=== PATIENT | male | born 1975 | race African-American/Black ===

== ENCOUNTER 2017-02-22 11:29 | Inpatient (IN) | payer OTHER ==
[~2017-02-22] VITALS: Ht 193 cm; Wt 119.7 kg
[2017-02-22 12:28] LABS: ABSOLUTE BASOPHIL COUNT 0.1 /CUMM (0.0-0.2); ABSOLUTE EOSINOPHIL COUNT 0.1 /CUMM (0.0-0.7); ABSOLUTE GRANULOCYTE CT 12.4 /CUMM (1.4-6.5); ABSOLUTE LYMPH COUNT 2.4 /CUMM (1.2-3.4); ABSOLUTE MONOCYTE COUNT 1.1 /CUMM (0.10-0.60); BASOPHIL % 0.7 % (0.0-2.0); EOSINOPHIL % 0.5 % (0-5); GRANULOCYTE % 76.9 % (42.2-75.2); HEMATOCRIT 38.8 % (42-52); MEAN CORPUSCULAR HGB 27.1 PG (27.0-31.0); MEAN CORPUSCULAR VOLUME 82.2 FL (80.0-94.0); MEAN PLATELET VOLUME 8.4 FL (7.4-10.4); PLATELET COUNT 327 /CUMM (130-400); RBC DISTRIBUTION WIDTH 14.7 % (11.5-14.5); RED BLOOD CELL CT 4.73 /CUMM (4.70-6.10); WHITE BLOOD CELL COUNT 16.1 /CUMM (4.8-10.8)
--- NOTE | 2017-02-22 12:59 | ED GI/GU/ABDOMINAL COMPLAINT ---
History of Present Illness General Chief Complaint: Abdominal Pain/Flank Pain Stated Complaint: SIB URGENT CARE FOR ABD PAIN Source: patient Exam Limitations: no limitations Vital Signs & Intake/Output Vital Signs & Intake/Output Vital Signs Date Time Temp Pulse Resp B/P B/P Pulse O2 O2 Flow FiO2 Mean Ox Delivery Rate 02/22 1341 99 Room Air 02/22 1202 98.0 82 18 130/79 99 Room Air Room Air Allergies Coded Allergies: No Known Allergies (02/22/17) Reconcile Medications Amoxicillin/Potassium Clav (Augmentin 875-125 Tablet) 875 MG-125 MG TABLET 1 TAB PO BID INFECTION Tramadol HCl (Ultram) 50 MG TABLET 1 TAB PO Q6P PRN pain Triage Note: PT TO ED WITH C/O LOWER LEFT ABD PAIN X 1 WEEK, TOOK PEPTOBISMAL, THEN HAD DIARRHEA, THEN TOOK IMMODIUM, TRIED GAS-X, PAIN CONTINUES. TAKING PO FLUIDS WELL, "PAIN STILL COMES AND GOES". Triage Nurses Notes Reviewed? yes Onset: Abrupt Duration: week(s): Timing: recent history Quality/Severity: cramping Location: left lower quadrant Radiation: no radiation Activities at Onset: physical activity Prior Abdominal Problems: none HPI: 41-year-old gentlem with no past medical history/past surgical history came to [facility] with complaints of left lower quadrant pain for the past 1 week. Apparently patient was in usual state of health until a week ago, followed by cramping left lower quadrant pain of 8 x 10 in severity aggravated on increased physical activity and no relieving factors. The pain was not associated with chills, fever, hematochezia, hematuria, epigastric pain, right lower quadrant pain, trauma, dysuria, chest pain, chest pressure. Patient took Peptobismol, Gasex and started having loose bowel movements with no blood. Following this patient took Imodium to help with his loose stools. Since then he is having altered bowel movements. Patient doesn't have a primary care physician. and is not on any medications. He denies illicit drug use/alcohol. Patient's most 4 -5 cigarettes per day. 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 (Elpidio YUNG,Linda) Past History Travel History Traveled to [place] past 21 day No Medical History Any Pertinent Medical History? none Neurological: NONE EENT: NONE Cardiovascular: NONE Respiratory: NONE Gastrointestinal: NONE Hepatic: NONE Renal: NONE Musculoskeletal: NONE Psychiatric: NONE Endocrine: NONE Blood Disorders: NONE Cancer(s): NONE ORDER SELECTOR/Reproductive: NONE Surgical History Surgical History: none Psychosocial History Where do you live Home Services at Home None What is your primary language Upper Sorbian Tobacco Use: Current Daily Use Daily Tobacco Use Amount/Type: => 5 Cigarettes daily ETOH Use: occasional use Illicit Drug Use: denies illicit drug use Family History Hx Contributory? Yes (Linda Magallanes MD) Review of Systems Review of Systems Constitutional: Reports: no symptoms. EENTM: Reports: no symptoms. Respiratory: Reports: no symptoms. Cardiovascular: Reports: no symptoms. GI: Reports: bloating, diarrhea, changes in stool. Genitourinary: Reports: no symptoms. Musculoskeletal: Reports: no symptoms. Skin: Reports: no symptoms. Neurological/Psychological: Reports: no symptoms. Hematologic/Endocrine: Reports: no symptoms. (Linda Magallanes MD) Physical Exam Physical Exam General Appearance: well developed/nourished, no apparent distress, alert, awake Head: atraumatic Ears, Nose, Throat, Mouth: hearing grossly normal Neck: normal inspection, supple, full range of motion Respiratory: normal breath sounds Cardiovascular: regular rate/rhythm Peripheral Pulses: 4+ radial (R), 4+ radial (L) Gastrointestinal: normal bowel sounds, soft, no organomegaly, tenderness (tender left lower quadrant ) Rectal: deferred Core Measures ACS in differential dx? No Sepsis Present: No Sepsis Focused Exam Completed? No (Linda Magallanes MD) Progress Differential Diagnosis: diverticulitis, gastritis, ureterolithiasis Plan of Care: Orders Procedure Date/time Status CBC WITHOUT DIFFERENTIAL 02/23 0600 Active BASIC ELECTROLYTES PLUS BUN&CR 02/23 0600 Active Nothing by Mouth 02/22 D Active Pathway - chart 02/22 1533 Active Code Status 02/22 1533 Active Patient Data 02/22 1529 Active ED Holding Orders 02/22 1514 Active Admit to inpatient 02/22 1514 Active Vital Signs 02/22 1514 Active Code Status 02/22 1514 Complete FingerStick- Glucose 02/22 1443 Active Add-on Test (ER Only) 02/22 1422 Active Add-on Test (ER Only) 02/22 1419 Active BLOOD CULTURE 02/22 1418 Active EKG 02/22 1418 Active PARTIAL THROMBOPLASTIN TIME 02/22 1210 Complete PROTHROMBIN TIME 02/22 1210 Complete LACTIC ACID 02/22 1210 Complete URINALYSIS 02/22 1209 Complete LIPASE 02/22 1209 Complete COMPREHENSIVE METABOLIC PANEL 02/22 1209 Complete CBC WITHOUT DIFFERENTIAL 02/22 1209 Complete AMYLASE 02/22 1209 Complete Admit to inpatient 02/22 UNK Active VTE Mechanical Prophylaxis 02/22 UNK Active Vital Signs 02/22 UNK Active Intake & Output 02/22 UNK Active Activity/Ambulation 02/22 UNK Active Current Medications Sig/Himanshu Start time Last Medication Dose Stop Time Status Admin Heparin Sodium 5,000 UNIT Q8 02/22 2200 UNVr (Porcine) Metronidazole 500 MG IQ8 02/22 1600 UNVr (Flagyl) N/A 1 UNIT (No Carrier) Morphine Sulfate 2 MG Q2P PRN 02/22 1545 UNVr (Morphine) Ondansetron HCl 4 MG Q6-PRN PRN 02/22 1545 UNVr (Zofran) Ceftriaxone Sodium 1,000 MG DAILY 02/22 1534 UNVr (Rocephin) Acetaminophen 650 MG Q6PRN PRN 02/22 1530 UNVr (Tylenol) Dextrose/Lactated 1,000 ML Q8H 02/22 1530 UNVr Ringer's (D5W in Lactated Ringers) Laboratory Tests 02/22/17 1235: Urine Color YEL, Urine Clarity HAZY H, Urine pH 6.0, Ur Specific [place] 1.025, Urine Protein TRACE H, Urine Ketones NEG, Urine Nitrite NEG, Urine Bilirubin NEG, Urine Urobilinogen 1.0, Ur Leukocyte Esterase NEG, Ur Microscopic SEDIMENT EXAMINED, Urine RBC 25-50 H, Urine WBC 1-3 H, Ur Epithelial Cells FEW, Urine Bacteria FEW H, Hyaline Casts FEW H, Urine Mucus MOD H, Urine Hemoglobin LARGE H, Urine Glucose NEG 02/22/17 1210: Anion Gap 17 H, Estimated GFR > 60, BUN/Creatinine Ratio 16.7, Glucose 94, Lactic Acid 0.6 L, Calcium 9.4, Total Bilirubin 0.5, AST 26, ALT 74 H, Alkaline Phosphatase 152 H, Total Protein 7.3, Albumin 4.1, Globulin 3.2, Albumin/Globulin Ratio 1.3, Amylase 54, Lipase 45, PT 12.0, INR 1.14, APTT 30, CBC w Diff MAN DIFF ORDERED, RBC 4.73, MCV 82.2, MCH 27.1, RDW 14.7 H, MPV 8.4, Gran % 76.9 H, Lymphocytes % 14.8 L, Monocytes % 7.1, Eosinophils % 0.5, Basophils % 0.7, Absolute Granulocytes 12.4 H, Absolute Lymphocytes 2.4, Absolute Monocytes 1.1 H, Absolute Eosinophils 0.1, Absolute Basophils 0.1, Platelet Estimate ADEQUATE, Hypochromic-Microcytic 1+, Anisocytosis 1+, PUBS MCHC 33.0 Microbiology 02/22 1447 BLOOD: Blood Culture - RECD 02/22 1439 BLOOD: Blood Culture - RECD Diagnostic Imaging: Discussed w/RAD: CT Scan. Initial ED EKG: none (Elpidio YUNG,Linda) Diagnostic Imaging: Viewed by Me: CT Scan. Radiology Impression: PATIENT: DOMINICK MINA PRESENT AGE: 41 PATIENT ACCOUNT NO: [id number] : 74 LOCATION: [facility] ORDERING PHYSICIAN: Linda Magallanes MD SERVICE DATE: 02/22/17 EXAM TYPE: CAT - CT ABD & PELVIS W/O IV CONTRAS EXAMINATION: CT ABDOMEN AND PELVIS WITHOUT CONTRAST CLINICAL INFORMATION: Left quadrant pain COMPARISON: None TECHNIQUE: Multidetector volumetric imaging was performed from the superior aspect of the liver through the pubic symphysis. Sagittal and coronal reformatted images were obtained on the technologist's workstation. DLP: 615.33 mGy-cm FINDINGS: LUNG BASES: The visualized lung bases are unremarkable. LIVER, GALLBLADDER, AND BILIARY TREE: The liver is normal in size, shape, and attenuation. No focal hepatic lesion or biliary ductal dilatation is identified on this noncontrast exam. The gallbladder is unremarkable with no evidence of radiopaque gallstones, gallbladder wall thickening, or obvious pericholecystic inflammatory changes. PANCREAS: Unremarkable. SPLEEN: Unremarkable. ADRENAL GLANDS: Unremarkable. KIDNEYS AND URETERS: The kidneys are normal in size, shape, and attenuation. No hydronephrosis, hydroureter, or calculi seen. A left lower pole renal sinus cyst is suspected measuring approximately 1 cm in diameter. No perinephric stranding. BLADDER: Unremarkable. GASTROINTESTINAL TRACT: There is wall thickening of a segment of the mid sigmoid colon with surrounding stranding. There are foci of gas tracking superiorly from this region in the central to left pelvis as seen on coronal images 45-50/109 which are suspicious for sequelae of a perforated diverticulitis, as scattered sigmoid diverticula are present. Developing abscess cannot be excluded, though no significant fluid is seen mixed with gas at this time. No evidence of bowel obstruction. The appendix appears nondilated. ABDOMINAL WALL: No significant hernia is appreciated. LYMPH NODES: Normal. VASCULAR: There is scattered calcification along the common iliac arteries. PELVIC VISCERA: Unremarkable. OSSEOUS STRUCTURES: Unremarkable. IMPRESSION: Inflammation of a segment of the sigmoid colon with multiple foci of free air tracking superiorly. Appearance is suspicious for sequelae of a perforated diverticulitis. Early developing abscess cannot be excluded, though no significant fluid is seen at this time. This critical result was discussed with Linda Magallanes on 02/22/2017 2:15 PM, and it was ascertained that the content and urgency of the report was understood at the time of direct communication. DICTATED BY: Demetrius Curtis MD DATE/TIME DICTATED:02/22/171401 SURVEY QUESTIONNAIRE DESIGNER:ELVA DATE/TIME TRANSCRIBED:02/22/171401 CONFIDENTIAL, DO NOT COPY WITHOUT APPROPRIATE AUTHORIZATION. <Electronically signed in Other Vendor System> SIGNED BY: Demetrius Curtis MD 02/22/17 1420 (Marbella YUNG,Sheila) Departure Departure Condition: Stable Referrals: Patient Has No Primary Care Dr (PCP/Family) Prescriptions: Current Visit Scripts Tramadol HCl (Ultram) 1 TAB PO Q6P PRN pain #15 TAB Amoxicillin/Potassium Clav (Augmentin 875-125 Tablet) 1 TAB PO BID #14 TAB (Linda Magallanes MD) Departure Time of Disposition: 1601 Disposition: STILL A PATIENT Clinical Impression Primary Impression: Perforated diverticulum Departure Forms: Customer Survey General Discharge Information Admission Note Spoke With: Umer YUNG,Joshua Jang Documentation of Exam: Documentation of any treatments & extenuating circumstances including Concerns Regarding Discharge (functional status, medication knowledge or non-compliance, living conditions, etc.) that warrant an admission rather than observation: [IV FLUIDS, IV ABX, NPO, SERIAL ABDOMINAL EXAMINATIONS, PROGRESS DIET TOLERATED, CONSIDER IR DRAIN OR OR IF PATIENT WORSENS] PA/COPPER ROLLER HANDLER PRINT[employer] Co-Sign Statement Statement: ED Attending supervision documentation- [X] I saw and evaluated the patient. I have also reviewed all the pertinent lab results and diagnostic results. I agree with the findings and the plan of care as documented in the PA's/COPPER ROLL[employer]'s documentation. [X] I have reviewed the ED Record and agree with the PA's/COPPER ROLL[employer]'s documentation. [] Additions or exceptions (if any) to the PAs/COPPER RO[employer]'s note and plan are summarized below: [] (Marbella YUNG,Sheila)
--- NOTE | 2017-02-22 14:20 | CT SCAN REPORT ---
EXAMINATION: CT ABDOMEN AND PELVIS WITHOUT CONTRAST CLINICAL INFORMATION: Left quadrant pain COMPARISON: None TECHNIQUE: Multidetector volumetric imaging was performed from the superior aspect of the liver through the pubic symphysis. Sagittal and coronal reformatted images were obtained on the technologist's workstation. DLP: 615.33 mGy-cm FINDINGS: LUNG BASES: The visualized lung bases are unremarkable. LIVER, GALLBLADDER, AND BILIARY TREE: The liver is normal in size, shape, and attenuation. No focal hepatic lesion or biliary ductal dilatation is identified on this noncontrast exam. The gallbladder is unremarkable with no evidence of radiopaque gallstones, gallbladder wall thickening, or obvious pericholecystic inflammatory changes. PANCREAS: Unremarkable. SPLEEN: Unremarkable. ADRENAL GLANDS: Unremarkable. KIDNEYS AND URETERS: The kidneys are normal in size, shape, and attenuation. No hydronephrosis, hydroureter, or calculi seen. A left lower pole renal sinus cyst is suspected measuring approximately 1 cm in diameter. No perinephric stranding. BLADDER: Unremarkable. GASTROINTESTINAL TRACT: There is wall thickening of a segment of the mid sigmoid colon with surrounding stranding. There are foci of gas tracking superiorly from this region in the central to left pelvis as seen on coronal images 45-50/109 which are suspicious for sequelae of a perforated diverticulitis, as scattered sigmoid diverticula are present. Developing abscess cannot be excluded, though no significant fluid is seen mixed with gas at this time. No evidence of bowel obstruction. The appendix appears nondilated. ABDOMINAL WALL: No significant hernia is appreciated. LYMPH NODES: Normal. VASCULAR: There is scattered calcification along the common iliac arteries. PELVIC VISCERA: Unremarkable. OSSEOUS STRUCTURES: Unremarkable. IMPRESSION: Inflammation of a segment of the sigmoid colon with multiple foci of free air tracking superiorly. Appearance is suspicious for sequelae of a perforated diverticulitis. Early developing abscess cannot be excluded, though no significant fluid is seen at this time. This critical result was discussed with Linda Magallanes on 02/22/2017 2:15 PM, and it was ascertained that the content and urgency of the report was understood at the time of direct communication.
[2017-02-22 14:37] LABS: PTT 30 SEC (25-37)
--- NOTE | 2017-02-22 15:36 | Admission Core Measures ---
Acute Coronary Syndrome (CM) ACS Core Measures Acute Coronary Syndrome Diagnosis No Congestive Heart Failure (NEW) CHF Core Measures Congestive Heart Failure Diagnosis No Cerebrovascular Accident (NEW) CVA Core Measures CVA/TIA Diagnosis No Venous Thromboembolism VTE Core Jacquelyn (View Protocol) VTE Risk Factors Surgery No Mechanical VTE Prophylaxis d/t N/A MechProphylax Ordered No VTE Pharm Prophylaxis d/t NA PharmProphylax ordered Problem List As ranked by this Provider includes Assessment & Plan 1. Perforation of sigmoid colon due to diverticulitis HOME MEDS Home Med List No Known Home Medications
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
[2017-02-22 17:15] VITALS: BP 121/70
[2017-02-22 19:49] VITALS: BP 126/72
[2017-02-22 22:03] VITALS: BP 130/80
[2017-02-23 07:16] VITALS: BP 126/76
--- NOTE | 2017-02-23 07:50 | PN- General Surgery ---
See Addendum Subjective Subjective: Pt. reports passing small flatus, had 2 soft BM's this morning.Reports feeling hungry Has occasional crampy LLQ pain, but did not require narcotics for pain. Objective Vital Signs and I&Os Vital Signs Date Time Temp Pulse Resp B/P B/P Pulse O2 O2 Flow FiO2 Mean Ox Delivery Rate 02/23 0716 99.4 75 18 126/76 99 02/22 2203 99.0 78 20 130/80 98 Room Air 02/22 2050 98.3 80 16 119/68 100 Room Air 02/22 1949 97.8 78 16 126/72 98 Room Air 02/22 1947 97.8 78 16 126/72 98 Room Air 02/22 1715 98.0 80 18 121/70 100 Room Air 02/22 1713 98.0 80 18 121/70 100 Room Air 02/22 1341 99 Room Air 02/22 1202 98.0 82 18 130/79 99 Room Air Room Air Intake & Output 02/23 0800 02/23 0000 02/22 1600 02/22 0802/22 0000 02/21 1600 Intake Total 325 0 Output Total 100 Balance 225 0 Intake, IV 325 Intake, Oral 0 0 Output, Urine 100 Patient 264 lb 265 lb Weight Weight Reported by Patient Reported by Patient Measurement Method Alert, oriented, no distress, looks comfortable while resting in bed. HEENT unremarkable Lungs clear Herat regular Abdomen is soft, mildly distended.Moderate focal tenderness in LLQ on palpation. No tenderenss on percussion to area.No peritonitis. Extr. without edema, well perfused Assessment/Plan Assessment/Plan Sigmoid diverticulitis with likely microperforation, no evidence of abscess by CT scan. HD#1 Clinically pt. is stable.Essentially afebrile.Minimal subjective improvement in pain. Still has fair amounts of focal tenderenss on exam without diffuse peritonitis, although doesn't require narcotics for pain control. Leukocytosis present on admission, will follow WBC today. Continue current treatment with NPO, IVF and abx.( Rocephin/ Flagyl) No indication for surgical intervention/ Rubens procedure at this time. Plan and treatment reviewed with pt. Core Measures Venous Thromboembolism VTE Risk Factors Surgery No Mechanical VTE Prophylaxis d/t N/A MechProphylax Ordered No VTE Pharm Prophylaxis d/t NA PharmProphylax ordered
[2017-02-23 08:21] LABS: ABSOLUTE BASOPHIL COUNT 0 /CUMM (0.0-0.2); ABSOLUTE EOSINOPHIL COUNT 0.1 /CUMM (0.0-0.7); ABSOLUTE GRANULOCYTE CT 11.5 /CUMM (1.4-6.5); ABSOLUTE LYMPH COUNT 2.5 /CUMM (1.2-3.4); ABSOLUTE MONOCYTE COUNT 1.3 /CUMM (0.10-0.60); BASOPHIL % 0.3 % (0.0-2.0); EOSINOPHIL % 0.7 % (0-5); GRANULOCYTE % 74.2 % (42.2-75.2); HEMATOCRIT 35.6 % (42-52); MEAN CORPUSCULAR HGB 27.5 PG (27.0-31.0); MEAN CORPUSCULAR HGB CONC 33.6 G/DL (33.0-37.0); MEAN CORPUSCULAR VOLUME 81.9 FL (80.0-94.0); MEAN PLATELET VOLUME 8.8 FL (7.4-10.4); PLATELET COUNT 298 /CUMM (130-400); RBC DISTRIBUTION WIDTH 14.9 % (11.5-14.5); RED BLOOD CELL CT 4.34 /CUMM (4.70-6.10); WHITE BLOOD CELL COUNT 15.5 /CUMM (4.8-10.8)
[2017-02-23 13:38] VITALS: BP 122/70
[2017-02-23 21:46] VITALS: BP 122/70
[2017-02-24 06:27] VITALS: BP 118/68
--- NOTE | 2017-02-24 08:06 | PN- General Surgery ---
See Addendum Subjective Subjective: No worsening of symptoms reported. No acute overnight events. No nausea or vomitting. Is hungry. Passed a small amount of flatus but did not move bowels this am. Has been voiding spontaneously. No c/o chest pain, shortness of breath and difficulty breathing. Has been oob. Objective Vital Signs and I&Os Vital Signs Date Time Temp Pulse Resp B/P B/P Pulse O2 O2 Flow FiO2 Mean Ox Delivery Rate 02/24 0627 98.9 78 20 118/68 97 Room Air 02/23 2146 99.4 76 18 122/70 98 Room Air 02/23 1338 99.1 80 18 122/70 99 Room Air Intake & Output 02/24 1600 02/24 0800 02/24 0000 02/23 1600 02/23 0800 02/23 0000 Intake Total 480 1240 1120 1000 325 Output Total 1100 2450 575 400 100 Balance -620 -1210 545 600 225 Intake, IV 1000 1000 1000 325 Intake, Oral 480 240 120 0 Number 0 0 Bowel Movements Output, Urine 1100 2450 575 400 100 Patient 264 lb Weight Weight Reported by Patient Measurement Method Physical Exam: General: Alert, oriented, no distress, looks comfortable while resting in bed. HEENT: unremarkable Pulm: Lungs clear to auscultation bilaterally Cardiac: RRR, s1s2 Abdomen: Soft, mildly distended. +BS. Mild to moderate focal tenderness in LLQ on palpation. No tenderenss on percussion to area. No signs of peritonitis throughout. Extremities: Moves all extremities, distal sensation intact. Skin warm, well perfused. No peripheral edema noted. Bilateral calves soft and non-tender. DP pulses palpable. Assessment/Plan Assessment/Plan This is a healthy 41 year old male, hospital day 2, with a Sigmoid diverticulitis with likely microperforation. Leukocytosis present on admission, wbc 15.5 yesterday, will continue to follow WBC today. Continue current treatment with NPO, IVF and abx ( Rocephin/ Flagyl) No indication for surgical intervention/ Rubens procedure at this time. Continue hep sub q for dvt ppx Continue oob Continue clears for now, await improved bowel function and reduction in leukocytosis Plan and treatment reviewed with pt Will d/w Dr. Owusu Core Measures Venous Thromboembolism VTE Risk Factors Surgery No Mechanical VTE Prophylaxis d/t N/A MechProphylax Ordered No VTE Pharm Prophylaxis d/t NA PharmProphylax ordered
[2017-02-24 09:11] LABS: ABSOLUTE BASOPHIL COUNT 0 /CUMM (0.0-0.2); ABSOLUTE EOSINOPHIL COUNT 0.1 /CUMM (0.0-0.7); ABSOLUTE GRANULOCYTE CT 9.7 /CUMM (1.4-6.5); ABSOLUTE LYMPH COUNT 2.4 /CUMM (1.2-3.4); ABSOLUTE MONOCYTE COUNT 1.3 /CUMM (0.10-0.60); BASOPHIL % 0.1 % (0.0-2.0); EOSINOPHIL % 0.7 % (0-5); GRANULOCYTE % 71.4 % (42.2-75.2); MEAN CORPUSCULAR HGB 27.3 PG (27.0-31.0); MEAN CORPUSCULAR HGB CONC 33.9 G/DL (33.0-37.0); MEAN CORPUSCULAR VOLUME 80.7 FL (80.0-94.0); MEAN PLATELET VOLUME 8.8 FL (7.4-10.4); PLATELET COUNT 347 /CUMM (130-400); RBC DISTRIBUTION WIDTH 14.7 % (11.5-14.5); RED BLOOD CELL CT 4.59 /CUMM (4.70-6.10); WHITE BLOOD CELL COUNT 13.5 /CUMM (4.8-10.8)
[2017-02-24 15:50] VITALS: BP 126/68
[2017-02-24 22:34] VITALS: BP 98/60
[2017-02-25 06:42] VITALS: BP 112/79
--- NOTE | 2017-02-25 10:34 | PN- General Surgery ---
Subjective Subjective: feeling well, minimal pain, no nv, + flatus, tolerating diet. wants to go home today Objective Vital Signs and I&Os Vital Signs Date Time Temp Pulse Resp B/P B/P Pulse O2 O2 Flow FiO2 Mean Ox Delivery Rate 02/25 0642 98.5 67 18 112/79 98 Room Air 02/24 2234 98.7 75 18 98/60 97 Room Air 02/24 1550 98.7 71 20 126/68 98 Room Air Intake & Output 02/25 1600 02/25 0800 02/25 0000 02/24 1600 02/24 0800 02/24 0000 Intake Total 1600 1259 610 9953 Output Total 218 100 3393 2450 Balance -850 1150 1500 -620 -1210 Intake, IV 1000 1000 1000 Intake, Oral 600 500 480 240 Number 1 0 Bowel Movements Output, Urine 456 365 7321 2450 Physical Exam: wdwn aox3, nad no resp distress minimal abdominal tenderenss LLQ, normal bs. neuro- wnl. gait- wnl Results Last 48 Hours of Labs: Laboratory Tests 02/24 0738 Chemistry Sodium (137 - 145 mmol/L) 141 Potassium (3.5 - 5.1 mmol/L) 4.1 Chloride (98 - 107 mmol/L) 103 Carbon Dioxide (22 - 30 mmol/L) 22 Anion Gap (5 - 16) 16 BUN (9 - 20 mg/dL) 9 Creatinine (0.7 - 1.2 mg/dL) 0.8 Estimated GFR (>60 ml/min) > 60 BUN/Creatinine Ratio (7 - 25 %) 11.3 Hematology CBC w Diff NO MAN DIFF REQ WBC (4.8 - 10.8 /CUMM) 13.5 H RBC (4.70 - 6.10 /CUMM) 4.59 L Hgb (14.0 - 18.0 G/DL) 12.5 L Hct (42 - 52 %) 37.0 L MCV (80.0 - 94.0 FL) 80.7 MCH (27.0 - 31.0 PG) 27.3 RDW (11.5 - 14.5 %) 14.7 H Plt Count (130 - 400 /CUMM) 347 MPV (7.4 - 10.4 FL) 8.8 Gran % (42.2 - 75.2 %) 71.4 Lymphocytes % (20.5 - 51.1 %) 18.0 L Monocytes % (1.7 - 9.3 %) 9.8 H Eosinophils % (0 - 5 %) 0.7 Basophils % (0.0 - 2.0 %) 0.1 Absolute Granulocytes (1.4 - 6.5 /CUMM) 9.7 H Absolute Lymphocytes (1.2 - 3.4 /CUMM) 2.4 Absolute Monocytes (0.10 - 0.60 /CUMM) 1.3 H Absolute Eosinophils (0.0 - 0.7 /CUMM) 0.1 Absolute Basophils (0.0 - 0.2 /CUMM) 0 PUBS MCHC (33.0 - 37.0 G/DL) 33.9 Assessment/Plan Assessment/Plan This is a healthy 41 year old male, hospital day 3, with a Sigmoid diverticulitis with microperforation. tolerating diet minimal pain, no infectous sx. stable for dc home, out pt fup in 1 week. dw pt, to ER with any concerns. cont abx, augmentin x1w Core Measures Venous Thromboembolism VTE Risk Factors Surgery No Mechanical VTE Prophylaxis d/t N/A MechProphylax Ordered No VTE Pharm Prophylaxis d/t NA PharmProphylax ordered
[2017-02-25] MEDS ORDERED: AUGMENTIN 875-1 EACH PO (10:35)
[2017-02-25] MEDS ORDERED: ULTRAM50 M1 PO (10:35)
--- NOTE | 2017-02-25 10:39 | Patient Discharge Instructions ---
Discharge Instructions General Discharge Information You were seen/treated for: diverticulitis, perforated You had these procedures: none Watch for these problems: worsening abdominal pain, nausea, vomiting, fever. Go to ER with any concerns. Special Instructions: call for follow up with Dr Owusu in 1 week take antibiotcis for the next week for infection tylenol, motrin or tramadol as needed for pain Diet Continue normal diet: No Recommended Diet: Low Residue Activity Full Activity/No Limits: Yes Activity Self Limited: Yes Acute Coronary Syndrome Inclusion Criteria At DC or during hospital stay patient has or had the following: ACS DIAGNOSIS No Discharge Core Measures Meds if any: Prescribed or Continued at Discharge Meds if any: NOT Prescribed or Continued at Discharge Congestive Heart Failure Inclusion Criteria At DC or during hospital stay patient has or had the following: CHF DIAGNOSIS No Discharge Core Measures Meds if any: Prescribed or Continued at Discharge Meds if any: NOT Prescribed or Continued at Discharge Cerebrovascular accident Inclusion Criteria At DC or during hospital stay patient has or had the following: CVA/TIA Diagnosis No Discharge Core Measures Meds if any: Prescribed or Continued at Discharge Meds if any: NOT Prescribed or Continued at Discharge Venous thromboembolism Inclusion Criteria VTE Diagnosis No VTE Type NONE VTE Confirmed by (Test) NONE Discharge Core Measures - Per Current guidelines, there needs to be overlap - treatment for the first 5 days of Warfarin therapy. - If discharged on Warfarin prior to 5 days of - overlap therapy, the patient will need to be - assessed for post discharge needs including - *Post discharge parental anticoagulation - *Warfarin and/or parental anticoagulation education - *Follow up date to check INR post discharge At least 5 days overlap therapy as Inpatient No Meds if any: Prescribed or Continued at Discharge Note: Overlap Therapy is Warfarin and Anticoagulant Meds if any: NOT Prescribed or Continued at Discharge
== END 2017-02-25 11:35 | DRG 244 ==
LOC: ERH 11:29 → 2NB 15:14 → ERHI 15:14 → ENRESERV 19:39 → ENTRNSPT 21:07 → 2NB 21:19 → CMPTRNSPT 21:30 → ENPENDDIS 02-25 10:35 → 2NB 02-25 11:35
PROVIDERS: Emergency Medicine; Physician Assistant Surgical
DX: K57.20 Diverticulitis of large intestine with perforation and abscess without bleeding (principal); D72.829 Elevated white blood cell count, unspecified; F17.210 Nicotine dependence, cigarettes, uncomplicated
CPT/HCPCS: 2NBSP; 36415; 74176; 81001; 82436; 87040; 93005; 93010; J0696; J1644; J7060